=== PATIENT | male | born 1935 | race Caucasian/White ===

== ENCOUNTER 2016-10-06 08:13 | Emergency (ER) | payer OTHER ==
[~2016-10-06] VITALS: Ht 182.9 cm; Wt 80.6 kg
[2016-10-06 09:00] LABS: EOSINOPHIL (%) 1.2 % (0-5); EOSINOPHIL COUNT 0.1 K/uL (0-0.3); HEMATOCRIT 34.4 % (38.0-50.0); IMMATURE GRANULOCYTE (%) 0.2 % (0.0-0.7); INSTRUMENT ABS NEUTROPHIL CT 3.8 K/uL; LYMPHOCYTE COUNT 0.6 K/uL (1.0-2.8); MCH 30.6 PG (29.0-34.0); MCHC 33.1 G/DL (30.0-36.0); MCV 92.2 FL (86-99); MEAN PLAT.VOLUME 10.7 uM^3 (9.0-12.4); MONOCYTE (%) 12.5 % (3-12); MONOCYTE COUNT 0.6 K/uL (0-0.8); NEUTROPHIL COUNT 3.8 K/uL (1.8-6.4); PLATELET COUNT 148 K/uL (156-360); RBC DIS.WIDTH-CV 12.1 % (11.8-14.6); RBC DIS.WIDTH-SD 41.4 % (39-53); RED BLOOD COUNT 3.73 M/uL (4.00-5.50); WHITE BLOOD COUNT 5.1 K/uL (4.1-10.2)
[2016-10-06 09:03] LABS: CARBON DIOXIDE (BICARBONATE) 29.8 MEQ/L (20-31)
[2016-10-06 09:12] LABS: CHLORIDE 101 mEq/L (99-109); POTASSIUM 3.7 mEq/L (3.7-5.4); SODIUM 135 mEq/L (136-147)
[2016-10-06 09:14] LABS: GLUCOSE 97 mg/dL (70-99)
[2016-10-06 09:15] LABS: ANION GAP 8 MEQ/L (2-14)
[2016-10-06 09:16] LABS: TOTAL BILIRUBIN 0.6 mg/dL (0.0-1.0)
[2016-10-06 09:17] LABS: ALKALINE PHOSPHATASE 72 IU/L (3-129)
[2016-10-06 09:18] LABS: GFR ESTIMATE (CALCULATED) 56 mL/min/
[2016-10-06 09:19] LABS: UREA NITROGEN (BUN) 19 mg/dL (9-23)
[2016-10-06 09:21] LABS: TROP-I INTERPRETATION NEGATIVE; TROPONIN-I < 0.01 ng/mL (0.0-0.30)
[2016-10-06 09:49] LABS: ADD MIUA? NO; BILIRUBIN NEGATIVE; BLOOD NEGATIVE; COLOR STRAW ((YELLOW)); GLUCOSE (STRIP) NEGATIVE; KETONES NEGATIVE; LEUKOCYTES NEGATIVE; NITRITE NEGATIVE; PROTEIN (STRIP) NEGATIVE; UCUL ADDED? NO; UROBILINOGEN 0.2 MG/DL (0.2-1.0)
[2016-10-06] MEDS ORDERED: TESSALON200 MG PO (11:43)
[2016-10-06] MEDS ORDERED: NAPROXEN500 MG PO (11:43)
[2016-10-06 12:50] LABS: INTERNAL CONTROL VALID? YES; MONOSPOT (MONONUCLEOSIS SEROL) NEGATIVE
[2016-10-06 13:30] VITALS: BP 141/82
== END 2016-10-06 13:31 | disposition home or self-care (01) ==
LOC: EME 08:13
PROVIDERS: Physician Assistant
DX: J02.9 Acute pharyngitis, unspecified (principal); R13.10 Dysphagia, unspecified; R06.02 Shortness of breath; R05 Cough; R07.9 Chest pain, unspecified
CPT/HCPCS: 70360; 70491; 71020; 80053; 81003; 82803; 83880; 84484; 85025; 86308; 87651 90; 93005; 99281; 99285; J0561; J1100; J1885; J7030